=== PATIENT | male | born 1970 | race American Indian/Alaskan Native ===

== ENCOUNTER 2016-09-16 07:49 | Emergency (ER) | payer OTHER ==
[2016-09-16 07:54] VITALS: BMI 26.4
[2016-09-16] MEDS ORDERED: SODIUM CHLORIDE 0.9% 500 ML INFUS.BAG IV ONE (08:09)
[2016-09-16] MEDS ORDERED: KETOROLAC TROMETHAMINE 30 MG/1 ML VIAL IVPUSH ONE ×2 (08:09→16:28)
--- NOTE | 2016-09-16 08:17 | PDOC ---
History of Present Illness <Lesly Dia - Last Filed: 09/16/16 14:03> - History of Present Illness Initial Comments: 09/16/16 08:12 45-year-old male with a past medical history of lumbar laminectomy in 2010, and discectomy, L5-S1, and T12-L1 He is had as his baseline, since the surgery, weakness on plantar flexion of the foot, and unable to stand on his toes, as well as numbness and tingling in the legs bilaterally, more on the left than the right He has not had an MRI for 2 years, and he has seen Dr. Arora in the past Patient is complaining of 2-3 weeks of left hip pain/groin pain, radiating to his left buttock, left lower quadrant abdomen, left testicle, and down his left leg, which also occasionally occurs on the right He is having some increasing in his lower extremity paresthesias, and also now having some weakness of the hip flexors The pain is been worse in the past 2 days, and he states is a little difficult to walk up the steps due to his hip flexor weakness He denies any urinary bladder symptoms at this time, although he states he has had some intermittent cauda equina symptoms Patient had cauda equina symptoms before the surgery, and has had intermittent cauda equina symptoms chronically since the surgery He denies any dysuria urgency or frequency He denies any hematuria He denies any nausea or vomiting He denies any fevers or chills <Heather Liz - Last Filed: 09/17/16 08:20> - General Chief Complaint: Back Pain Stated Complaint: PAIN Time Seen by Provider: 09/16/16 07:57 Past History <Lesly Dia - Last Filed: 09/16/16 14:03> - Past Medical History Other medical history: none - Psycho/Social/Smoking Cessation Hx Anxiety: No Suicidal Ideation: No Smoking History: Never smoked Have you smoked in the past 12 months: No Information on smoking cessation initiated: No Hx Alcohol Use: No Drug/Substance Use Hx: No Substance Use Type: None <Heather Liz - Last Filed: 09/17/16 08:20> - Past Medical History Allergies/Adverse Reactions: Allergies Allergy/AdvReac Type Severity Reaction Status Date / Time No Known Allergies Allergy Verified 09/16/16 08:20 Home Medications: Ambulatory Orders NK [No Known Home Medication] 09/16/16 *Physical Exam - Vital Signs Last Vital Signs Temp Pulse Resp BP Pulse Ox 98.8 F 83 18 168/124 100 09/16/16 07:50 09/16/16 07:50 09/16/16 07:50 09/16/16 07:50 09/16/16 07:50 <DiaLesly - Last Filed: 09/16/16 14:03> - Vital Signs Last Vital Signs Temp Pulse Resp BP Pulse Ox 98.8 F 83 18 168/124 100 09/16/16 07:50 09/16/16 07:50 09/16/16 07:50 09/16/16 07:50 09/16/16 07:50 - Physical Exam Comments: 09/16/16 08:14 Physical exam Last Vital Signs Temp Pulse Resp BP Pulse Ox 98.8 F 83 18 168/124 100 09/16/16 07:50 09/16/16 07:50 09/16/16 07:50 09/16/16 07:50 09/16/16 07:50 GENERAL: The patient is awake, alert, and in pain HEAD: Normal with no signs of trauma. ENT: Moist mucous membranes. NECK: Normal range of motion, supple LUNGS: Breath sounds equal, clear to auscultation bilaterally. No wheezes, and no crackles. HEART: Regular rate and rhythm, normal S1 and S2 without murmur, rub or gallop. ABDOMEN: The abdomen is soft with hypoactive but present bowel sounds There is some left lower quadrant tenderness to deep palpation There is no CVA tenderness BACK: There is no C-spine or T-spine tenderness There is a well-healed midline LS spine surgery scar There is no point tenderness in the LS-spine There is some mild tenderness in the left sciatic area There is some tenderness in the left inguinal ligament EXTREMITIES: Normal range of motion, no edema. No clubbing or cyanosis. No cords, erythema, or tenderness. NEUROLOGICAL: Patient is alert and answering questions Motor strength is equal in the upper extremities bilaterally There is 4 out of 5 strength in the lower extremities bilaterally There is 3 out of 5 plantar flexion in the feet bilaterally, and 5 out of 5 dorsi flexion in the feet bilaterally There is diminished strength of the hip flexors bilaterally There is diminished sensation in the legs bilaterally PSYCH: Normal mood, normal affect. SKIN: Warm, Dry, <Heather Liz - Last Filed: 09/17/16 08:20> ED Treatment Course - LABORATORY CBC & Chemistry Diagram: 09/16/16 08:28 09/16/16 08:28 <Lesly Dia - Last Filed: 09/16/16 14:03> - LABORATORY CBC & Chemistry Diagram: 09/16/16 08:28 09/16/16 08:28 - RADIOLOGY Radiology Studies Ordered: Category Date Time Status ABDOMEN & PELVIS CT W/O CONTR [CT] Stat CT Scan 09/16/16 08:[address] W/O CONTRAST [CT] Stat CT Scan 09/16/16 08:09 Ordered <Heather Liz - Last Filed: 09/17/16 08:20> Medical Decision Making - Medical Decision Making 09/16/16 08:20 A call was placed to Neurosurgeon, Dr. Hermelindo Arora at [phone]. Awaiting call back. 09/16/16 08:[address] Hermelindo Arora. Case was discussed. 09/16/16 09:04 Call was placed to Neurologist personnel training officer, Dr. Segun French at [phone]. 09/16/16 09:24 Second call was placed to Dr. Segun French at [phone]. 09/16/16 09:[address] Maya Fisher. Case was discussed. 09/16/16 13:57 Call was placed to Neurologist personnel training officer, Dr. Maya Fisher at [phone]. Immediate response. Case was discussed. 09/16/16 14:04 A call was placed to NeurosurgeonDr. Hermelindo at [phone]. Immediate response. Case was discussed. <Lesly Dia - Last Filed: 09/16/16 14:03> - Medical Decision Making 09/16/16 08:17 Unsure if this pain represents a low kidney stone, at the UV junction, or more likely, exacerbation of his chronic disc disease, with progression of neurologic symptoms and pain Will start with a CT scan of the abdomen and pelvis kidney stone protocol, and request LS-spine CT reconstruction views 09/16/16 08:[address] Arora-neurosurgery Patient had severe cauda equina syndrome prior to surgery, and has had cauda equina symptoms off and on since the surgery Dr Arora has not seen the pt in a very long time, and he states that he is no longer this patient's neurosurgeon 09/16/16 09:[address] Rose - neurology-coming to see patient Patient had CT scan of the abdomen and pelvis, with LS-spine recon views- awaiting results 09/16/16 10:03 Laboratory Results - last 24 hr 09/16/16 09/16/16 08:28 08:28 WBC 11.5 H RBC 5.39 Hgb 16.3 Hct 46.8 MCV 86.8 MCHC 34.9 RDW 13.0 Plt Count 206 MPV 9.5 Sodium 138 Potassium 3.6 Chloride 102 Carbon Dioxide 29 Anion Gap 7 L BUN 12 Creatinine 1.1 Creat Clearance w eGFR > 60 Random Glucose 107 H Calcium 9.0 Total Bilirubin 1.3 H AST 27 ALT 30 Alkaline Phosphatase 77 Total Protein 8.0 Albumin 4.2 Neurology at bedside evaluating patient - Dr Rose CT reconstructions of the abdomen and pelvis CAT scan as read by me-spinal cord compression at T12-L1 level Awaiting radiologist report MRI pending 09/16/16 11:35 CT scan of the abdomen and pelvis without contrast No hydronephrosis and no kidney stones Normal visualization of the bowel with no bowel wall thickening and no evidence of diverticulitis 09/16/16 12:11 Pt in MRI at this time CT scan as read by radiologist CT scan of the [id number] are the reconstructed images from the CT abdomen pelvis Status post bilateral laminectomy at L5-S1, with suggestion of mild disc bulge and right lateral spur formation, likely impinging on the right L5 nerve root Moderate degenerative disc disease and vacuum phenomenon is present There is a persistent T12-L1 moderate disc herniation, mainly right paracentral , impinging on the distal thoracic cord at the conus level LIII-L4 mild broad-based disc bulge is again seen L4-L5 mild disc bulge and moderate degenerative central spinal canal stenosis is again seen Please correlate with MRI 09/16/16 15:16 MRI findings discussed with neurology Will give dexamethasone Case discussed with Dr. Arora-neurosurgery states that he is no longer this patient's neurosurgeon, and is unable to see this patient at this time MRI of the thoracic and lumbar spine Multilevel disc disease At the T12-L1 level there is moderate to large mainly central right paracentral disc herniation deforming the thecal sac and impinging on the conus tip There is multilevel thoracic and lumbar disc disease At the L5-S1 level there is thickening of the intervertebral space with hemilaminectomy There is a disc bulge reaching the L5 nerve root and impinging on the L5 nerve root as well as the S1 nerve root Dr Conroy is not available Patient offered [facility] for spinal cord compression Patient does not want to go to [facility], 09/16/16 16:28 Patient wants to be transferred to [place] neurosurgery Case discussed with Dr Polanco, neurosurgery at [place] Accepts patient in transfer to neurosurgical floor bed Awaiting admitting to see if bed available Impression-spinal cord compression Patient accepted by neurosurgery at [place]-awaiting bed availability-transfer center states they will call back soon regarding bed availability at [place] Awaiting neurosurgical floor bed Dr Casarez aware pt is accepted for transfer to [place], but still awaiting bed assignment from [place] transfer [facility] Repeat blood pressure 163/105 <Heather Liz - Last Filed: 09/17/16 08:20> *DC/Admit/Observation/Transfer - Attestations Scribe Attestion: 09/16/16 08:21 Documentation prepared by Lesly Dia, acting as medical economics consultant for Heather Liz MD. <Lesly Dia - Last Filed: 09/16/16 14:03> - Transfer to Acute Care Facility Receiving Facility: [facility] Accepting Physician:: Dr Polanco - neurosurgery <Heather Liz - Last Filed: 09/17/16 08:20> Diagnosis at time of Disposition: Spinal cord compression - Discharge Dispostion Disposition: TRANSFER ACUTE CARE/OTHER HOSP - Referrals Referrals: Tommy Fierro MD [Primary Care Provider] -
[2016-09-16 08:34] LABS: MCH 30.3 pg (25.7-33.7); MCHC 34.9 g/dl (32.0-35.9); MEAN CELL VOLUME 86.8 fl (80-96); MEAN PLT VOLUME 9.5 fl (7.5-11.1); PLATELET COUNT 206 K/MM3 (134-434); WHITE BLOOD COUNT 11.5 K/mm3 (4.0-10.0)
[2016-09-16 08:57] LABS: ALBUMIN 4.2 g/dl (3.4-5.0); ANION GAP 7 (8-16); CO2 29 mmol/L (21-32); GLUCOSE,RANDOM 107 mg/dL (74-106)
[2016-09-16 09:01] LABS: ALK PHOS 77 U/L (45-117); BILIRUBIN,TOTAL 1.3 mg/dL (0.2-1.0); CREATININE 1.1 mg/dL (0.7-1.3); SGOT/AST 27 U/L (15-37); SGPT/ALT 30 U/L (12-78)
[2016-09-16] MEDS ORDERED: ACETAMINOPHEN 1000 MG/100 ML VIAL (NON FORMULARY) IVPB ONE (09:46)
[2016-09-16] MEDS ORDERED: ACETAMINOPHEN INJECTION 100 ML IVPB ONE (10:14)
[2016-09-16 11:56] LABS: URINE APPEARANCE CLOUDY; URINE BILIRUBIN NEGATIVE (NEGATIVE); URINE BLOOD NEGATIVE (NEGATIVE); URINE COLOR LTYELLOW; URINE GLUCOSE (UA) NEGATIVE (NEGATIVE); URINE KETONE NEGATIVE (NEGATIVE); URINE LEUK ESTERASE NEGATIVE (NEGATIVE); URINE NITRITE NEGATIVE (NEGATIVE); URINE PROTEIN NEGATIVE (NEGATIVE); URINE UROBILINOGEN NEGATIVE E.U./dl (0.2-1.0)
--- NOTE | 2016-09-16 12:22 | CONSULT ---
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 He is accompanied by his sister. As per the patient, the reports intermittent pain since time of the surgery. For the last several weeks as noted left hip and groin pain, radiating to the left buttock, left lower quadrant of the abdomen and down the left leg. He is also reports some difficulty with urinary and bowel voiding. Recently he has noted increased sensory changes on the lateral aspect of both feet and legs, along with difficulty climbing stairs due to hip flexion weakness. He last saw Dr Arora in follow up a few years ago. In ED patient underwent CT L/S spine which showed s/p laminectomy L5-S1, T12 moderate disc herniation with impingement on the cord. - History Source History Provided By: Patient Limitations to Obtaining History: No Limitations - Past Surgical History Additional Surgical History: Laminectomy - Alcohol/Substance Use Hx Alcohol Use: No - Smoking History Smoking history: Never smoked Have you smoked in the past 12 months: No Home Medications - Allergies Allergies/Adverse Reactions: Allergies Allergy/AdvReac Type Severity Reaction Status Date / Time No Known Allergies Allergy Verified 09/16/16 08:20 - Home Medications Home Medications: Ambulatory Orders NK [No Known Home Medication] 09/16/16 Review of Systems - Review of Systems Constitutional: reports: Weakness Eyes: reports: No Symptoms HENT: reports: No Symptoms Neck: reports: No Symptoms Cardiovascular: reports: No Symptoms Respiratory: reports: No Symptoms Gastrointestinal: reports: No Symptoms Genitourinary: reports: No Symptoms Musculoskeletal: reports: Muscle Weakness Integumentary: reports: No Symptoms Neurological: reports: Other (lower back pain) Physical Exam Vital Signs: Vital Signs Temperature 98.8 F 09/16/16 07:50 Pulse Rate 83 09/16/16 07:50 Respiratory Rate 18 09/16/16 07:50 Blood Pressure 168/124 09/16/16 07:50 O2 Sat by Pulse Oximetry (%) 100 09/16/16 07:50 Constitutional: Yes: Well Nourished Eyes: Yes: EOM Intact HENT: Yes: Atraumatic, Normocephalic Neurological: Yes: Other (Mental status awake, alert, oriented, fluent speech and comprehension CNII-XII EOMI, visual juarez full, face symmetric, tongue in midline Sensory: Decreased temperature sensation lower abdomen>upper abdomen ? 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 He is accompanied by his sister. CT L/S spine which showed s/p laminectomy L5-S1, T12 moderate disc herniation with impingement on the cord Exam significant for decrease sensation/temperature lower vs upper abdomen ?T12 level Decrease to light touch bilateral lateral LE Impression Lower back pain Rule out cauda equina, cord compression Recommend Stat MRI T/L/S spine with and without contrast
[2016-09-16] MEDS ORDERED: DEXAMETHASONE SOD PHOSPHATE 10 MG/1 ML VIAL IVPUSH ONE (15:15)
[2016-09-16] MEDS ORDERED: DEXAMETHASONE SOD PHOSPHATE 10 MG/1 ML VIAL ONE (16:10)
[2016-09-16] MEDS ORDERED: HYDROmorphone HCL CARPU-JECT 1 MG/1 ML DISP.SYRIN ONE (16:47)
[2016-09-16] MEDS ORDERED: HYDROmorphone HCL CARPU-JECT 1 MG/1 ML DISP.SYRIN IVPUSH ONE (16:49)
[2016-09-16] MEDS ORDERED: LABETALOL HCL 5 MG/1 ML (100MG/20 ML VIAL) IVPUSH ONE (17:17)
[2016-09-16] MEDS ORDERED: LABETALOL HCL 5 MG/1 ML (100MG/20 ML VIAL) ONE (18:19)
[2016-09-16] MEDS ORDERED: KETOROLAC TROMETHAMINE 30 MG/1 ML VIAL ONE (18:19)
[2016-09-16] MEDS ORDERED: diazePAM 5 MG TABLET ONE (18:21)
[2016-09-16] MEDS ORDERED: diazePAM 5 MG TABLET PO ONE (18:27)
[2016-09-16 18:57] VITALS: TEMP 98.6
[2016-09-16] MEDS ORDERED: OXYCODONE/APAP 5/325MG COMBO TABLET PO ONE (20:59)
[2016-09-16] MEDS ORDERED: OXYCODONE/APAP 5/325MG COMBO TABLET ONE (21:03)
[2016-09-16 21:18] VITALS: BP 168/116; PULSE 89
--- NOTE | 2016-09-16 21:50 | PN ---
Progress Note (short form) - Note Progress Note: NEUROSURGERY Arrived in ED earlier but informed pt transferred already to [place] Pt with h/o T12-L1 partial laminecetomies and discectomy and B L5-S1 laminectomies and discectomy 7 year sago for conus and cauda equina compression Chart history reviewed earlier - history per Ed and neurology Had spoke to Dr Lockett earlier x2; L > R LE symptoms with chronic intermittent numbness/tingling and sciatica; worse last couple weeks, and some leg weakness in the last few days Informed Dr Lockett earlier that I had other clinical obligations and unable to attend to patient earlier when called; suggested Dr Conroy if he was available or transfer to tertiary institution MRI T/LS spine- Postop changes L5-S1 with disc bulge and spondylosis; moderate to marked L4-5 stenosis (somewhat more notable), L1-2, L2-3 and L3-4 DDD with bulges with mild thecal sac impingement; mild thoracic disc bulges T8-9 and T9- 10, T10-11, and L11-12; T12-L1 DDD with R sided disc protrusion with thecal sac impingement but not significantly changed from prior MRI With the complicated history and extensive involvement from thoracolumbar junction to L4-5, tertiary care is in the patient's best interest
== END 2016-09-16 21:18 | disposition short-term general hospital (02) ==
LOC: JER 07:49
PROC: 3E033NZ Introduction of Analgesics, Hypnotics, Sedatives into Peripheral Vein, Percutaneous Approach (ICD-10-PCS; principal; 2016-09-16)
PROC: 3E0333Z Introduction of Anti-inflammatory into Peripheral Vein, Percutaneous Approach (ICD-10-PCS; 2016-09-16)
PROC: 3E033GC Introduction of Other Therapeutic Substance into Peripheral Vein, Percutaneous Approach (ICD-10-PCS; 2016-09-16)
DX: M51.05 Intervertebral disc disorders with myelopathy, thoracolumbar region (principal); R20.8 Other disturbances of skin sensation
CPT/HCPCS: 36415; 72131-TC; 72146-TC; 72148-TC; 74176-TC; 80053; 81003; 85027; 99285-25